=== PATIENT | male | born 1990 | race African-American/Black ===

== ENCOUNTER 2021-07-28 17:33 | Emergency (ER) | payer OTHER ==
[2021-07-28 18:48] VITALS: PULSE 73; RESP 18; TEMP 98.1
--- NOTE | 2021-07-28 19:37 | ED ---
General Adult HPI - General Chief complaint: Recheck/Abnormal Lab/Rx Stated complaint: Covid test Source: patient Mode of arrival: ambulatory Limitations: no limitations - History of Present Illness Initial comments: 31-year-old male presents to the emergency department requesting Covid testing. States that he has been exposed to cold in the past 2-3 days. He denies any current symptoms. Patient was vaccinated in January of this year. She denies any medical problems. No fevers, chest pain, shortness of breath, sore throat, diarrhea, nausea. No other alleviating, precipitating or modifying factors - Related Data Allergies Allergy/AdvReac Type Severity Reaction Status Date / Time Penicillins Allergy Unknown Verified 07/28/21 18:45 Review of Systems ROS Statement: Those systems with pertinent positive or pertinent negative responses have been documented in the HPI. ROS Other: All systems not noted in ROS Statement are negative. Past Medical History Past Medical History: No Reported History History of Any Multi-Drug Resistant Organisms: None Reported Past Surgical History: No Surgical Hx Reported Past Psychological History: No Psychological Hx Reported Smoking Status: Current every day smoker Past Alcohol Use History: Occasional Past Drug Use History: Marijuana General Exam Limitations: no limitations Course Vital Signs 07/28/21 18:46 Temperature 98.1 F Pulse Rate 73 Respiratory 18 Rate O2 Sat by Pulse 100 Oximetry Medical Decision Making - Medical Decision Making Upon arrival patient was placed in a [facility] room. He is swabbed for Covid which does come back positive. Patient maintaining his saturations at this time. No increased work of breathing. Reports to feeling completely asymptomatic. Patient will be discharged home at this time. Instructed to buy a pulse ox. Needs to return to the emergency room for any new or worsening symptoms including hypoxia. Patient agreed to this. Was given written and verbal discharge instructions and discharged home in stable condition - Lab Data Lab Results 07/28/21 Range/Units 18:50 Coronavirus (PCR) Detected A (Not Detectd) Disposition Clinical Impression: COVID-19 Disposition: HOME SELF-CARE Condition: Stable Instructions (If sedation given, give patient instructions): Coronavirus Disease 2019 (COVID-19) Additional Instructions: Please follow-up with your primary care doctor in 2-4 days. Take Motrin and Tylenol alternating every 4 hours for fever control. Return to the emergency room for any new or worsening symptoms Is patient prescribed a controlled substance at d/c from ED?: No Referrals: None,Stated [Primary Care Provider] - 1-2 days Time of Disposition: 19:37
== END 2021-07-28 19:58 | disposition home or self-care (01) ==
LOC: EC 17:33
DX: U07.1 COVID-19 (principal); F17.200 Nicotine dependence, unspecified, uncomplicated; F12.90 Cannabis use, unspecified, uncomplicated
CPT/HCPCS: 87635; 96361; 96365; 99283

== ENCOUNTER 2021-12-06 19:52 | Emergency (ER) | payer OTHER ==
[2021-12-06 19:59] VITALS: BP 158/108; PULSE 116; RESP 20; TEMP 98
[2021-12-06] MEDS ORDERED: LORazepam 1 MG TAB PO STA (20:47)
--- NOTE | 2021-12-06 20:51 | ED ---
General Adult HPI - General Source: patient, RN notes reviewed, old records reviewed Mode of arrival: ambulatory Limitations: no limitations <Jonas Orantes - Last Filed: 12/06/21 20:47> <Frank Hood - Last Filed: 12/06/21 23:26> - General Chief complaint: Psychiatric Symptoms Stated complaint: Mental Health Time Seen by Provider: 12/06/21 20:32 - History of Present Illness Initial comments: Patient is a 31-year-old male with past medical history remarkable for depression who recently got out of [facility] a few months ago, but has been having a tough time adjusting presents emergency Department physician's Believes He Needs to Be Seen for His Depression. Denies Any Suicidal or Homicidal Ideations, Attempts, Plans. Denies Any Visual or Auditory Hallucinations. States He Has Been Experiencing Worsening Anxiety and Depression since Leaving Custodial. He States He Just Has Been Tough. He Has Lost 30-50 Pounds over the Last Few Months. States Sometimes It Is Hard to Eat and He Does Not Have an Appetite. Does Endorse Occasional Marijuana Use. Denies Any Illicit Drug Use or Alcohol Use. His No Other Acute Complaints at This Time. Patient Is Crying, Is Considering Leaving. However He Was Not Petitioned. His No Other Acute Complaints at This Time. Isn't Sure If He Is Ready to Talk to a Therapist yet. (Jonas Orantes) - Related Data Allergies Allergy/AdvReac Type Severity Reaction Status Date / Time Penicillins Allergy Unknown Verified 12/06/21 21:42 Review of Systems ROS Other: All systems not noted in ROS Statement are negative. <Jonas Orantes - Last Filed: 12/06/21 20:47> ROS Other: All systems not noted in ROS Statement are negative. <Frank Hood - Last Filed: 12/06/21 23:26> ROS Statement: Those systems with pertinent positive or pertinent negative responses have been documented in the HPI. Review of Systems: CONST: Denies fever EYES: Denies blurry vision ENT: Denies nasal congestion C/V: Denies Chest pain RESP: Denies shortness of breath GI: Denies abdominal pain : Denies dysuria SKIN: Denies rash. MSK: Denies joint pain. NEURO: Denies headache PSYCH: Denies suicidal and homicidal ideations/plans/attempts. Denies visual or auditory hallucinations. He does endorse depression, anxiety (Jonas Orantes) Past Medical History Past Medical History: No Reported History History of Any Multi-Drug Resistant Organisms: None Reported Past Surgical History: No Surgical Hx Reported Past Psychological History: Anxiety, Depression Smoking Status: Current every day smoker Past Alcohol Use History: Occasional Past Drug Use History: Marijuana <Jonas Orantes - Last Filed: 12/06/21 20:47> General Exam Limitations: no limitations <Jonas Orantes - Last Filed: 12/06/21 20:47> - General Exam Comments Initial Comments: General: Patient is upset and actively crying. HEAD: Normal with no signs of head trauma. EYES: PERRLA, EOMI, conjunctiva normal, no discharge. ENT: Hearing grossly intact, normal oropharynx. RESPIRATORY: Clear breath sounds bilaterally. No wheezes, rales, or rhonchi. C/V: Mildly tachycardic with regular rhythm. S1 and S2 auscultated. Peripheral pulses are 2+ and intact throughout. ABD: Abd is soft, nontender, nondistended EXT: Normal range of motion, no obvious deformity SKIN: No rashes or lesions observed on exposed skin. NEURO: Alert and oriented 4. No focal sensory strength deficits. (Jonas Orantes) Course Vital Signs 12/06/21 19:56 Temperature 98 F Pulse Rate 116 H Respiratory 20 Rate Blood Pressure 158/108 O2 Sat by Pulse 100 Oximetry Medical Decision Making <Jonas Orantes - Last Filed: 12/06/21 20:47> - Medical Decision Making This on the patient's presentation and physical exam, I do believe she is having worsening sign depression. He does not appear to be a danger to himself or to others. He is not petitioned. I do not believe he requires petitioning at this time. I talked with him at length that if he desires, he can leave but I do think would be beneficial to talk with psychiatry here and establish some form of follow-up, as it does seem that his depression and anxiety are impacting his life. He was in agreement this plan. I did offer him a small dose of Ativan which she accepted. BAT was obtained and is 0. UDS is ordered. Patient is otherwise medically cleared at this time. Patient agreed to stay to talk with EPS. Disposition is pending discussion with psychiatry. Patient is not petitioned. Patient is medically cleared. (Jonas Orantes) - Lab Data Lab Results 12/06/21 Range/Units 20:37 Urine Opiates Screen Not Detected (NotDetected) Ur Oxycodone Screen Not Detected (NotDetected) Urine Methadone Screen Not Detected (NotDetected) Ur Propoxyphene Screen Not Detected (NotDetected) Ur Barbiturates Screen Not Detected (NotDetected) U Tricyclic Antidepress Not Detected (NotDetected) Ur Phencyclidine Scrn Not Detected (NotDetected) Ur Amphetamines Screen Detected H (NotDetected) U Methamphetamines Scrn Detected H (NotDetected) U Benzodiazepines Scrn Not Detected (NotDetected) Urine Cocaine Screen Detected H (NotDetected) U Marijuana (THC) Screen Detected H (NotDetected) Disposition <Jonas Orantes - Last Filed: 12/06/21 20:47> Is patient prescribed a controlled substance at d/c from ED?: No <Frank Hood - Last Filed: 12/06/21 23:26> Clinical Impression: Depression Disposition: HOME SELF-CARE Condition: Good Instructions (If sedation given, give patient instructions): Mood Disorders (ED) Referrals: None,Stated [Primary Care Provider] - 1-2 days
[2021-12-06 21:42] LABS: Amphetamine Screen,Urine Detected (NotDetected); Barbiturate Screen,Urine Not Detected (NotDetected); Benzodiazepines Screen,Urine Not Detected (NotDetected); Cocaine Screen,Urine Detected (NotDetected); Methadone Screen, Urine Not Detected (NotDetected); Opiate Screen,Urine Not Detected (NotDetected); Oxycodone Screen, Urine Not Detected (NotDetected); Phencyclidine Screen,Urine Not Detected (NotDetected); Tricyclic Antidepressant,Urine Not Detected (NotDetected); Urn Cannabinoid Scrn Detected (NotDetected)
== END 2021-12-06 23:42 | disposition home or self-care (01) ==
LOC: EC 19:52
DX: F32.A Depression, unspecified (principal); F41.9 Anxiety disorder, unspecified; F17.200 Nicotine dependence, unspecified, uncomplicated; F12.90 Cannabis use, unspecified, uncomplicated; Z88.0 Allergy status to penicillin
CPT/HCPCS: 80306; 82075; 99284